=== PATIENT | female | born 1960 | race Caucasian/White ===

== ENCOUNTER 2017-09-09 10:18 | Emergency (ER) | payer OTHER ==
[~2017-09-09] VITALS: Ht 167.6 cm; Wt 60.8 kg
[2017-09-09 10:49] LABS: ABSOLUTE NEUTROPHILS 4.2 thou/uL (1.4-8.2); BASOPHILS 0.6 % (0.0-2.0); EOSINOPHILS 1.9 % (0.0-3.0); HEMATOCRIT 43.4 % (37.0-47.0); HEMOGLOBIN 14.9 gm/dL (12.0-15.0); LYMPHOCYTES 35.3 % (24.0-44.0); MCH 30.2 pg (26.0-34.0); MCHC 34.3 g/dL (28.0-37.0); MCV 88.2 fL (80.0-100.0); MONOCYTES 5.9 % (1.0-8.0); PLATELET COUNT 214 thou/uL (150-400); POLYS 56.3 % (36.0-66.0); RBC 4.92 mil/uL (4.20-5.00); RDW 12.5 % (10.5-14.5); WBC 7.4 thou/uL (4.0-11.0)
[2017-09-09 11:18] LABS: CALCIUM 9.9 mg/dL (8.5-10.1); CREATININE 0.9 mg/dL (0.6-1.0); POTASSIUM 3.6 mmol/L (3.5-5.1)
[2017-09-09] MEDS ORDERED: ESTRADIOL 1 MG T1 M1 PO (11:23)
[2017-09-09 11:58] LABS: URINE BILIRUBIN NEGATIVE (Negative); URINE BLOOD NEGATIVE (Negative); URINE CLARITY CLEAR; URINE COLOR YELLOW; URINE GLUCOSE-RANDOM* NEGATIVE (Negative); URINE KETONES 2+ (Negative); URINE LEUKOCYTES NEGATIVE (Negative); URINE NITRITE NEGATIVE (Negative); URINE PROTEIN (DIPSTICK) 1+ (Negative); URINE UROBILINOGEN 0.2 E.U./dl (0.2-1.0)
[2017-09-09 12:20] LABS: SQUAMOUS >10 Many /LPF (0-3)
[2017-09-09 12:21] LABS: BACTERIA 1-9 Few /HPF (None Seen); CASTS None Seen /LPF (None Seen); CRYSTALS None Seen /LPF (None Seen); URINE RBC None Seen /HPF (0-2); URINE WBC 0-5 Rare /HPF (0-5)
[2017-09-09] MEDS ORDERED: NORCO 5-325 TA1 EACH PO (13:22)
[2017-09-09] MEDS ORDERED: IBUPROFEN 600600 M1 PO (13:22)
== END 2017-09-09 13:27 | disposition home or self-care (01) ==
LOC: ER 10:18
PROVIDERS: Nurse Practitioner
DX: S20.419A Abrasion of unspecified back wall of thorax, initial encounter (principal); R10.9 Unspecified abdominal pain; W11.XXXA Fall on and from ladder, initial encounter; Y93.89 Activity, other specified; Y92.89 Other specified places as the place of occurrence of the external cause; Y99.8 Other external cause status